=== PATIENT | female | born 1995 | race African-American/Black ===

== ENCOUNTER 2020-06-06 04:28 | Inpatient (IN) | payer MEDICAID ==
[~2020-06-06] VITALS: Ht 167.6 cm; Wt 80.7 kg
[2020-06-06] MEDS ORDERED: ONDANSETRON HCL 4MG/2ML INJ IV STA (04:59)
[2020-06-06] MEDS ORDERED: KETOROLAC 30MG/ML VIAL IV STA (04:59)
[2020-06-06 05:37] LABS: BASOPHILS % 0.3 % (0.0-2.0); EOSINOPHILS % 0.1 % (0.0-5.0); HEMATOCRIT. 24.7 % (36.0-48.0); HEMOGLOBIN. 8.2 g/dL (12.0-16.0); LYMPHOCYTES % 19.1 % (20.0-50.0); MEAN CORPUSCULAR VOLUME 90.4 fL (81.0-99.0); MEAN PLATELET VOLUME 11.1 fl (7.4-10.4); MONOCYTES % 6.1 % (2.0-8.0); NEUTROPHILS % 74.4 % (40.0-76.0); PLATELET 137 x1000/uL (130-400); RED BLOOD CELL COUNT 2.73 mill/uL (4.2-5.4); RED CELL DISTRIBUTION WIDTH 15.5 % (11.6-14.6)
[2020-06-06 05:44] LABS: CHLORIDE 107 mEq/L (98-107)
[2020-06-06 05:47] LABS: ETHANOL BLOOD < 10 mg/dL
[2020-06-06] MEDS ORDERED: IOHEXOL-300 100 ML BOTTLE ONE (06:15)
[2020-06-06] MEDS ORDERED: MORPHINE SULFATE 4 MG/ML CPJ (NOT FOR IM USE) IV ONE ×2 (06:30→06:45)
[2020-06-06 07:09] LABS: CLARITY URINE CLOUDY (CLEAR); COLOR URINE YELLOW (YELLOW); KETONES URINE 1+ (NEGATIVE); LEUKOCYTE ESTERASE URINE 3+ (NEGATIVE); NITRITE URINE NEGATIVE (NEGATIVE); OCCULT BLOOD URINE 1+ (NEGATIVE); PH URINE 5.5 (4.5-8.0); PROTEIN URINE TRACE (NEGATIVE); SPECIFIC GRAVITY URINE 1.017 (1.005-1.030); UROBILINOGEN URINE 0.2 E.U./dL (0.2-1.0)
[2020-06-06 07:29] LABS: *AMPHETAMINES SCREEN URINE NEGATIVE (NEGATIVE); *BARBITURATES SCREEN URINE NEGATIVE (NEGATIVE); *COCAINE SCREEN URINE NEGATIVE (NEGATIVE)
[2020-06-06] MEDS ORDERED: VANCOMYCIN 1 G PREMIX 200 ML IV SCH (07:30)
[2020-06-06 07:32] LABS: METHADONE URINE SCREEN NEGATIVE (NEGATIVE); PHENCYCLIDINE URINE SCREEN NEGATIVE (NEGATIVE)
[2020-06-06 07:36] LABS: *BENZODIAZEPINES SCREEN URINE PRESUMTIVE POSITIVE (NEGATIVE); CANNABINOID URINE SCREEN PRESUMTIVE POSITIVE (NEGATIVE); OPIATES URINE SCREEN PRESUMTIVE POSITIVE (NEGATIVE)
[2020-06-06] MEDS ORDERED: HYDROCODONE/ACETAMINOPHEN 10/325MG TABLET PO PRN (09:15)
[2020-06-06] MEDS ORDERED: MORPHINE SULFATE 2 MG/ML CPJ (NOT FOR IM USE) IV PRN (09:15)
[2020-06-06] MEDS ORDERED: CEFTRIAXONE 1 G PREMIX 50 ML IV SCH (09:15)
[2020-06-06] MEDS: HYDROMORPHONE HCL/PF 2MG/ML CPJ IV PRN ×3 (10:11→20:18)
[2020-06-06] MEDS ORDERED: CEFTRIAXONE 1,000 MG in DEXTROSE 5% WATER 50 ML IV SCH (11:00)
[2020-06-06 12:00] VITALS: BP 137/65
[2020-06-06] MEDS ORDERED: PIPERACILLIN/TAZOBACTAM 3.375 G/VIAL IV SCH (12:00)
[2020-06-06] MEDS ORDERED: DIATR MEGLU/DIATRIZOATE SOLN 30ML PO SCH (12:30)
[2020-06-06] MEDS: PIPERACILLIN/TAZOBACTAM 3.375 G in DEXT 5% WATER 100 ML IV SCH ×3 (12:56→23:57)
[2020-06-06] MEDS: VANCOMYCIN 1 G PREMIX 200 ML IV SCH ×2 (14:05→21:27)
[2020-06-06 14:53] VITALS: BP 127/70
[2020-06-06] MEDS ORDERED: ALPRAZOLAM 0.25 MG TABLET PO PRN ×2 (15:30→23:30)
[2020-06-06] MEDS ORDERED: LORAZEPAM 2MG/ML CPJ IV NR (16:00)
[2020-06-06 17:53] LABS: TOTAL IRON BINDING CAPACITY 243 ug/dL (250-450)
[2020-06-06 20:00] VITALS: BP 123/73
[2020-06-07] VITALS: BP 125/75
[2020-06-07] MEDS: HYDROMORPHONE HCL/PF 2MG/ML CPJ IV PRN ×4 (00:18→20:06)
[2020-06-07] MEDS: HALOPERIDOL LACTATE 5MG/ML VIAL IM PRN (02:08)
[2020-06-07 04:00] VITALS: BP 126/78
[2020-06-07 04:39] LABS: BASOPHILS % 0.4 % (0.0-2.0); EOSINOPHILS % 0.5 % (0.0-5.0); HEMATOCRIT. 24.9 % (36.0-48.0); HEMOGLOBIN. 8.4 g/dL (12.0-16.0); LYMPHOCYTES % 19.8 % (20.0-50.0); MEAN CORPUSCULAR HEMOGLOBIN 30.5 pg (28.0-32.0); MEAN CORPUSCULAR VOLUME 90.6 fL (81.0-99.0); MEAN PLATELET VOLUME 10.5 fl (7.4-10.4); MONOCYTES % 5.1 % (2.0-8.0); NEUTROPHILS % 74.2 % (40.0-76.0); PLATELET 130 x1000/uL (130-400); RED BLOOD CELL COUNT 2.75 mill/uL (4.2-5.4); RED CELL DISTRIBUTION WIDTH 15.5 % (11.6-14.6)
[2020-06-07 04:59] LABS: CHLORIDE 106 mEq/L (98-107)
[2020-06-07] MEDS ORDERED: DIATR MEGLU/DIATRIZOATE SOLN 30ML ONE (05:00)
[2020-06-07 05:03] LABS: VANCOMYCIN TROUGH 15.7 ug/mL (5.0-10.0)
[2020-06-07] MEDS: PIPERACILLIN/TAZOBACTAM 3.375 G in DEXT 5% WATER 100 ML IV SCH ×4 (05:16→23:55)
[2020-06-07] MEDS: VANCOMYCIN 1 G PREMIX 200 ML IV SCH ×3 (05:32→21:58)
[2020-06-07 08:00] VITALS: BP 125/79
[2020-06-07] MEDS: ONDANSETRON HCL 4MG/2ML INJ IV PRN ×2 (10:23→20:49)
[2020-06-07 12:00] VITALS: BP 126/81
[2020-06-07] MEDS ORDERED: POTASSIUM CHLORIDE 20MEQ TABLET SR PO NR (14:00)
[2020-06-07] MEDS: DOCUSATE SODIUM 250MG CAPSULE PO SCH (14:57)
[2020-06-07 16:00] VITALS: BP 137/80
[2020-06-07] MEDS: FERROUS SULFATE 325MG TABLET PO SCH (17:50)
[2020-06-07 20:00] VITALS: BP 122/65
[2020-06-07] MEDS: KETOROLAC 30MG/ML VIAL IV PRN (20:49)
[2020-06-07] MEDS ORDERED: IOHEXOL-300 100 ML BOTTLE ONE (21:57)
[2020-06-08] VITALS: BP 118/61
[2020-06-08] MEDS: HYDROMORPHONE HCL/PF 2MG/ML CPJ IV PRN ×6 (00:10→22:14)
[2020-06-08 04:00] VITALS: BP 106/57
[2020-06-08] MEDS: VANCOMYCIN 1 G PREMIX 200 ML IV SCH ×3 (06:17→22:15)
[2020-06-08] MEDS: PIPERACILLIN/TAZOBACTAM 3.375 G in DEXT 5% WATER 100 ML IV SCH ×3 (06:17→18:11)
[2020-06-08 08:00] VITALS: BP 101/57
[2020-06-08] MEDS: FERROUS SULFATE 325MG TABLET PO SCH ×3 (08:33→18:11)
[2020-06-08] MEDS: DOCUSATE SODIUM 250MG CAPSULE PO SCH (08:33)
[2020-06-08] MEDS: ONDANSETRON HCL 4MG/2ML INJ IV PRN ×2 (09:22→18:11)
[2020-06-08] MEDS ORDERED: DOCU250C14 PO (11:18)
[2020-06-08] MEDS ORDERED: HYDR-4009 MT ×2 (11:18)
[2020-06-08] MEDS ORDERED: CIPR-213 MT (11:18)
[2020-06-08] MEDS ORDERED: METR500T MT (11:18)
[2020-06-08] MEDS ORDERED: FERR325T23 PO (11:18)
[2020-06-08 12:00] VITALS: BP 108/65
[2020-06-08 16:00] VITALS: BP 132/78
[2020-06-08 20:00] VITALS: BP 128/76
[2020-06-09] VITALS: BP 133/76
[2020-06-09] MEDS: ONDANSETRON HCL 4MG/2ML INJ IV PRN ×4 (00:18→21:47)
[2020-06-09] MEDS: PIPERACILLIN/TAZOBACTAM 3.375 G in DEXT 5% WATER 100 ML IV SCH ×4 (00:18→18:52)
[2020-06-09 04:00] VITALS: BP 128/80
[2020-06-09] MEDS: VANCOMYCIN 1 G PREMIX 200 ML IV SCH ×3 (06:37→21:58)
[2020-06-09] MEDS: HYDROMORPHONE HCL/PF 2MG/ML CPJ IV PRN ×2 (06:49→20:51)
[2020-06-09] MEDS: FERROUS SULFATE 325MG TABLET PO SCH ×4 (07:50→17:50)
[2020-06-09 08:00] VITALS: BP 109/76
[2020-06-09] MEDS: KETOROLAC 30MG/ML VIAL IV PRN ×2 (09:39→15:33)
[2020-06-09] MEDS: DOCUSATE SODIUM 250MG CAPSULE PO SCH (09:43)
[2020-06-09 12:00] VITALS: BP 133/75
[2020-06-09 16:00] VITALS: BP 125/86
[2020-06-09 20:00] VITALS: BP 155/81
[2020-06-09] MEDS: LORAZEPAM 2MG/ML CPJ IV PRN (22:47)
[2020-06-10] VITALS: BP 118/61
[2020-06-10] MEDS: PIPERACILLIN/TAZOBACTAM 3.375 G in DEXT 5% WATER 100 ML IV SCH ×3 (00:44→12:53)
[2020-06-10 04:00] VITALS: BP 125/73
[2020-06-10] MEDS: ONDANSETRON HCL 4MG/2ML INJ IV PRN ×2 (04:26→11:31)
[2020-06-10] MEDS: HYDROMORPHONE HCL/PF 2MG/ML CPJ IV PRN ×3 (04:26→13:17)
[2020-06-10] MEDS: VANCOMYCIN 1 G PREMIX 200 ML IV SCH ×2 (07:33→14:39)
[2020-06-10 08:00] VITALS: BP 112/72
[2020-06-10] MEDS: DOCUSATE SODIUM 250MG CAPSULE PO SCH ×2 (08:38→08:41)
[2020-06-10 12:00] VITALS: BP 114/71
[2020-06-10] MEDS: FERROUS SULFATE 325MG TABLET PO SCH ×2 (12:50→17:50)
[2020-06-10] MEDS: HALOPERIDOL LACTATE 5MG/ML VIAL IM PRN (15:34)
[2020-06-10 16:00] VITALS: BP 144/71
[2020-06-10] MEDS: IPRATROPIUM/ALBUTEROL 0.5-3(2.5)MG/3ML NEB HHN PRN (16:02)
[2020-06-10] MEDS ORDERED: ONDA4TAB5 MT (17:00)
[2020-06-10 17:45] LABS: HEMATOCRIT. 23.2 % (36.0-48.0); HEMOGLOBIN. 7.9 g/dL (12.0-16.0); MEAN CORPUSCULAR HEMOGLOBIN 30.5 pg (28.0-32.0); MEAN CORPUSCULAR VOLUME 89.4 fL (81.0-99.0); MEAN PLATELET VOLUME 9.9 fl (7.4-10.4); PLATELET 227 x1000/uL (130-400); RED CELL DISTRIBUTION WIDTH 15.6 % (11.6-14.6)
[2020-06-10] MEDS ORDERED: POTASSIUM CHLORIDE 20MEQ TABLET SR PO NR (19:00)
[2020-06-10 20:00] VITALS: BP 127/82
[2020-06-10] MEDS ORDERED: DEXT 5%/0.45% NACL 1000ML 1,000 ML IV SCH (20:00)
[2020-06-10] MEDS ORDERED: ONDANSETRON HCL 4MG TABLET PO PRN (21:30)
[2020-06-10] MEDS ORDERED: ZOLPIDEM TARTRATE 5MG TABLET PO PRN (22:15)
[2020-06-10 23:20] LABS: PLATELET ESTIMATE NORMAL
[2020-06-11] VITALS: BP 119/89
[2020-06-11] MEDS: HYDROCODONE/ACETAMINOPHEN 10/325MG TABLET PO PRN ×2 (03:02→07:04)
[2020-06-11 04:00] VITALS: BP 139/84
[2020-06-11 08:00] VITALS: BP 111/62
[2020-06-11] MEDS ORDERED: LIDOCAINE HCL 1% 20ML VIAL (Pyxis) INJ ONE (08:51)
[2020-06-11] MEDS: FERROUS SULFATE 325MG TABLET PO SCH ×3 (10:29→17:50)
[2020-06-11] MEDS: DOCUSATE SODIUM 250MG CAPSULE PO SCH (10:29)
[2020-06-11] MEDS: KETOROLAC 30MG/ML VIAL IV PRN (10:41)
[2020-06-11 12:00] VITALS: BP 138/78
[2020-06-11] MEDS ORDERED: POTASSIUM CHLORIDE 20MEQ TABLET SR PO SCH (12:15)
[2020-06-11] MEDS ORDERED: OXYCODONE HCL/ACETAMINOPHEN 5/325MG TABLET PO PRN (13:00)
[2020-06-11 13:46] LABS: CREATINE KINASE 256 IU/L (26-192)
[2020-06-11] MEDS: OXYCODONE HCL/ACETAMINOPHEN 5/325MG TABLET PO PRN (14:05)
[2020-06-11] MEDS: DEXT 5%/0.9% NACL 1,000 ML IV SCH ×2 (14:08→21:22)
[2020-06-11] MEDS: HYDROMORPHONE HCL/PF 2MG/ML CPJ IV PRN ×2 (15:18→21:19)
[2020-06-11] MEDS: IPRATROPIUM/ALBUTEROL 0.5-3(2.5)MG/3ML NEB HHN PRN (15:25)
[2020-06-11 16:00] VITALS: BP 140/83
[2020-06-11 20:00] VITALS: BP 138/78
[2020-06-11] MEDS: ONDANSETRON 4MG ODT PO PRN (21:16)
[2020-06-12] VITALS: BP 140/82
[2020-06-12] MEDS: LORAZEPAM 2MG/ML CPJ IV PRN (00:19)
[2020-06-12 04:00] VITALS: BP 118/69
[2020-06-12] MEDS: ONDANSETRON 4MG ODT PO PRN (05:54)
[2020-06-12] MEDS: HYDROMORPHONE HCL/PF 2MG/ML CPJ IV PRN ×4 (05:54→22:42)
[2020-06-12] MEDS: DEXT 5%/0.9% NACL 1,000 ML IV SCH ×3 (06:47→22:42)
[2020-06-12] MEDS: DOCUSATE SODIUM 250MG CAPSULE PO SCH ×2 (08:48→08:50)
[2020-06-12] MEDS: FERROUS SULFATE 325MG TABLET PO SCH ×3 (08:48→17:50)
[2020-06-12] MEDS: HALOPERIDOL LACTATE 5MG/ML VIAL IM PRN (11:11)
[2020-06-12 12:00] VITALS: BP 144/85
[2020-06-12] MEDS ORDERED: POTASSIUM CHLORIDE 20MEQ TABLET SR PO SCH (12:45)
[2020-06-12 20:00] VITALS: BP 128/78
[2020-06-13] VITALS (8 sets, daily range): BP systolic 107–128; BP diastolic 56–90
[2020-06-13] MEDS: LORAZEPAM 2MG/ML CPJ IV PRN
[2020-06-13] MEDS: HYDROMORPHONE HCL/PF 2MG/ML CPJ IV PRN ×4 (05:44→21:00)
[2020-06-13] MEDS: DEXT 5%/0.9% NACL 1,000 ML IV SCH ×3 (05:56→21:41)
[2020-06-13 07:26] LABS: BASOPHILS % 0.5 % (0.0-2.0); EOSINOPHILS % 1.4 % (0.0-5.0); LYMPHOCYTES % 9.6 % (20.0-50.0); MEAN CORPUSCULAR HEMOGLOBIN 30.3 pg (28.0-32.0); MEAN CORPUSCULAR VOLUME 89.2 fL (81.0-99.0); MEAN PLATELET VOLUME 9.4 fl (7.4-10.4); MONOCYTES % 8.3 % (2.0-8.0); NEUTROPHILS % 80.2 % (40.0-76.0); PLATELET 249 x1000/uL (130-400); RED CELL DISTRIBUTION WIDTH 15.8 % (11.6-14.6)
[2020-06-13 07:44] LABS: HEMOGLOBIN. 6.1 g/dL (12.0-16.0)
[2020-06-13 07:45] LABS: HEMATOCRIT. 17.8 % (36.0-48.0)
[2020-06-13] MEDS: DOCUSATE SODIUM 250MG CAPSULE PO SCH (09:54)
[2020-06-13] MEDS: FERROUS SULFATE 325MG TABLET PO SCH ×3 (09:54→17:50)
[2020-06-13] MEDS: ONDANSETRON 4MG ODT PO PRN (11:48)
[2020-06-13] MEDS: HALOPERIDOL LACTATE 5MG/ML VIAL IM PRN (11:48)
[2020-06-13] MEDS ORDERED: POTASSIUM CHLORIDE 20MEQ TABLET SR PO SCH (13:00)
[2020-06-13] MEDS ORDERED: ONDANSETRON HCL 4MG/2ML INJ IV PRN (13:15)
[2020-06-13 16:43] LABS: HEMATOCRIT 18.3 % (36.0-48.0)
[2020-06-13 21:40] LABS: HEMATOCRIT 21.7 % (36.0-48.0); HEMOGLOBIN 7.4 g/dL (12.0-16.0)
[2020-06-14] VITALS (7 sets, daily range): BP systolic 119–148; BP diastolic 69–86
[2020-06-14] MEDS: LORAZEPAM 2MG/ML CPJ IV PRN (00:12)
[2020-06-14] MEDS: DEXT 5%/0.9% NACL 1,000 ML IV SCH (05:54)
[2020-06-14] MEDS: FERROUS SULFATE 325MG TABLET PO SCH (07:50)
[2020-06-14] MEDS: DOCUSATE SODIUM 250MG CAPSULE PO SCH (09:00)
[2020-06-14 10:37] LABS: BASOPHILS % 0.6 % (0.0-2.0); EOSINOPHILS % 1.3 % (0.0-5.0); LYMPHOCYTES % 9.2 % (20.0-50.0); MEAN CORPUSCULAR HEMOGLOBIN 29.6 pg (28.0-32.0); MEAN CORPUSCULAR VOLUME 88.9 fL (81.0-99.0); MEAN PLATELET VOLUME 9.4 fl (7.4-10.4); MONOCYTES % 6.6 % (2.0-8.0); NEUTROPHILS % 82.3 % (40.0-76.0); PLATELET 291 x1000/uL (130-400); RED BLOOD CELL COUNT 2.34 mill/uL (4.2-5.4); RED CELL DISTRIBUTION WIDTH 15.7 % (11.6-14.6)
[2020-06-14 10:39] LABS: HEMOGLOBIN. 6.9 g/dL (12.0-16.0)
[2020-06-14 10:40] LABS: HEMATOCRIT. 20.8 % (36.0-48.0)
[2020-06-14 10:51] LABS: PHOSPHORUS 3.4 mg/dL (2.5-4.9)
[2020-06-14] MEDS: HYDROMORPHONE HCL/PF 2MG/ML CPJ IV PRN (11:17)
[2020-06-14] MEDS ORDERED: POTASSIUM CHLORIDE 20MEQ TABLET SR PO SCH (13:00)
[2020-06-14] MEDS: OXYCODONE HCL/ACETAMINOPHEN 5/325MG TABLET PO PRN (14:35)
== END 2020-06-14 16:00 | disposition home or self-care (01) | DRG 720 ==
LOC: ER 04:39 → 6EST 06:55 → ENRESERV 08:01
PROVIDERS: ADMIT Internal Medicine; ATTEND Internal Medicine
PROC: 02HV33Z Insertion of Infusion Device into Superior Vena Cava, Percutaneous Approach (ICD-10-PCS; principal; 2020-06-11)
PROC: B548ZZA Ultrasonography of Superior Vena Cava, Guidance (ICD-10-PCS; 2020-06-11)
PROC: 30233N1 Transfusion of Nonautologous Red Blood Cells into Peripheral Vein, Percutaneous Approach (ICD-10-PCS; 2020-06-13)
DX: A41.9 Sepsis, unspecified organism (principal); N39.0 Urinary tract infection, site not specified; E44.1 Mild protein-calorie malnutrition; E87.6 Hypokalemia; F12.90 Cannabis use, unspecified, uncomplicated; F41.9 Anxiety disorder, unspecified; J45.909 Unspecified asthma, uncomplicated; G89.18 Other acute postprocedural pain; E87.1 Hypo-osmolality and hyponatremia; M62.82 Rhabdomyolysis; D50.9 Iron deficiency anemia, unspecified; Z68.28 Body mass index [BMI] 28.0-28.9, adult; N17.0 Acute kidney failure with tubular necrosis; Z98.890 Other specified postprocedural states
CPT/HCPCS: 36415; 71045; 74177; 76770; 76937; 80048; 80053; 80202; 80305; 80320; 81003; 82270; 82550; 82728; 83540; 83550; 83735; 84100; 85014; 85018; 85025; 86850; 86900; 86920; 93005; 96374; 99285; C1725; J0696; J1170; J1630; J1885; J2060; J2270; J2405; J2543; J3370; J3490; J7040; J7042; J7060; P9016; Q0162; Q9963; Q9967; G0480

== ENCOUNTER 2025-02-22 07:40 | Emergency (ER) | payer MEDICAID ==
[~2025-02-22] VITALS: Ht 172.7 cm; Wt 70.0 kg
[~2025-02-22 07:40] MED LIST: DOCU250C14 PO; FERR325T23 PO; HYDR-4009 MT; ONDA4TAB5 MT
[2025-02-22 07:42] VITALS: O2SAT 94
[2025-02-22] MEDS: HALOPERIDOL LACTATE 5MG/ML VIAL IM ONE (08:17)
[2025-02-22] MEDS: MORPHINE SULFATE 4 MG/ML INJ (FOR IV/IM USE) IV ONE (08:24)
[2025-02-22 08:33] LABS: HEMATOCRIT. 40.4 % (36.0-48.0); HEMOGLOBIN. 13.3 g/dL (12.0-16.0); MEAN PLATELET VOLUME 11.2 fl (7.4-10.4); PLATELET 176 x1000/uL (130-400); RED BLOOD CELL COUNT 4.28 mill/uL (4.2-5.4); RED CELL DISTRIBUTION WIDTH 15.1 % (11.6-14.6)
[2025-02-22 08:50] LABS: HCG SCREEN NEGATIVE
[2025-02-22 08:51] LABS: CREATININE 0.9 mg/dL (0.6-1.0)
[2025-02-22 08:52] LABS: UREA NITROGEN BLOOD 10 mg/dL (9-23)
[2025-02-22 08:53] LABS: ASPARTATE AMINOTRANSFERASE 25 IU/L (<34)
[2025-02-22 08:54] LABS: BILIRUBIN DIRECT 0.2 mg/dL (<=3.0); BILIRUBIN TOTAL 0.6 mg/dL (0.1-1.0); PROTEIN TOTAL 7.7 g/dL (6.0-8.3)
[2025-02-22 10:00] VITALS: TEMP 36.8
[2025-02-22 10:08] LABS: BAND% 3.0 % (1.0-6.0); LYMPHOCYTES % MANUAL 5.0 % (20.0-60.0); MONOCYTES % MANUAL 1.0 % (2.0-8.0); NEUTROPHILS % MANUAL 91.0 % (45.0-75.0); PLATELET ESTIMATE NORMAL
[2025-02-22 13:09] VITALS: BP 134/81; PULSE 65; RESP 20; O2SAT 100
== END 2025-02-22 14:09 | disposition short-term general hospital (02) ==
LOC: ER 07:40
DX: R10.31 Right lower quadrant pain (principal); R11.2 Nausea with vomiting, unspecified; J45.909 Unspecified asthma, uncomplicated; Z79.899 Other long term (current) drug therapy; Z98.890 Other specified postprocedural states
CPT/HCPCS: 80076; 80048; 84703; 83690; 85025; 36415; 71045; 74176; 93005; 96372; 96374; 99285; J1630; J2270; Z7610 ×4; A4606